=== PATIENT | female | born 2000 | race African-American/Black ===

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

== ENCOUNTER 2021-06-12 17:19 | Emergency (ER) | payer MEDICAID ==
[~2021-06-12] VITALS: Ht 165.1 cm; Wt 59.0 kg
[2021-06-12] MEDS ORDERED: IBUPROFEN 600MG TABLET PO STA (17:50)
[2021-06-12 20:33] VITALS: BP 117/63
== END 2021-06-12 20:34 | disposition home or self-care (01) ==
LOC: ER 17:19
DX: S09.90XA Unspecified injury of head, initial encounter (principal); X58.XXXA Exposure to other specified factors, initial encounter; Y93.89 Activity, other specified; Y92.89 Other specified places as the place of occurrence of the external cause; Y99.8 Other external cause status
CPT/HCPCS: 70450; 70486; 72100; 81025; 99285; Z7610